=== PATIENT | male | born 1955 | race African-American/Black ===

== ENCOUNTER 2021-06-22 11:13 | Emergency (ER) | payer MEDICAID ==
[~2021-06-22] VITALS: Ht 167.6 cm; Wt 82.0 kg
[~2021-06-22 11:13] MED LIST: ALBU18HF2 IH; LEVO500T89 MT
[2021-06-22 13:04] LABS: BASOPHILS % 0.6 % (0.0-2.0); EOSINOPHILS % 0.2 % (0.0-5.0); HEMATOCRIT. 35.5 % (42.0-52.0); HEMOGLOBIN. 11.9 g/dL (14.0-18.0); LYMPHOCYTES % 10.9 % (20.0-50.0); MEAN CORPUSCULAR HEMOGLOBIN 34.9 pg (28.0-32.0); MEAN CORPUSCULAR VOLUME 103.8 fL (80.0-94.0); MEAN PLATELET VOLUME 8.6 fl (7.4-10.4); MONOCYTES % 6.8 % (2.0-8.0); NEUTROPHILS % 81.5 % (40.0-76.0); PLATELET 351 x1000/uL (130-400); RED BLOOD CELL COUNT 3.42 mill/uL (4.7-6.1)
[2021-06-22 13:11] LABS: CHLORIDE 109 mEq/L (98-107)
[2021-06-22 13:16] LABS: ETHANOL BLOOD < 10 mg/dL
[2021-06-22 13:19] LABS: CREATINE KINASE 141 IU/L (39-308)
[2021-06-22] MEDS ORDERED: CEFTRIAXONE 1 G PREMIX 50 ML IV ONE (18:45)
[2021-06-22] MEDS ORDERED: AZITHROMYCIN 500 MG TABLET PO ONE (18:45)
[2021-06-22] MEDS ORDERED: AZIT250T12 MT (19:36)
[2021-06-22 20:01] LABS: CLARITY URINE CLEAR (CLEAR); COLOR URINE YELLOW (YELLOW); KETONES URINE TRACE (NEGATIVE); LEUKOCYTE ESTERASE URINE NEGATIVE (NEGATIVE); NITRITE URINE NEGATIVE (NEGATIVE); OCCULT BLOOD URINE NEGATIVE (NEGATIVE); PH URINE 6.5 (4.5-8.0); PROTEIN URINE TRACE (NEGATIVE); SPECIFIC GRAVITY URINE 1.015 (1.005-1.030)
[2021-06-22 20:14] LABS: *BARBITURATES SCREEN URINE NEGATIVE (NEGATIVE); *BENZODIAZEPINES SCREEN URINE NEGATIVE (NEGATIVE); METHADONE URINE SCREEN NEGATIVE (NEGATIVE); PHENCYCLIDINE URINE SCREEN NEGATIVE (NEGATIVE)
[2021-06-22 20:15] LABS: *AMPHETAMINES SCREEN URINE NEGATIVE (NEGATIVE); *COCAINE SCREEN URINE NEGATIVE (NEGATIVE); CANNABINOID URINE SCREEN PRESUMTIVE POSITIVE (NEGATIVE); OPIATES URINE SCREEN NEGATIVE (NEGATIVE)
[2021-06-22 20:18] VITALS: BP 142/70
== END 2021-06-22 20:18 | disposition home or self-care (01) ==
LOC: ER 11:30 → ENRESERV 19:49 → CANRESERV 19:49 → ER 20:18 → CANBEDREQ 21:32
DX: R41.0 Disorientation, unspecified (principal); M25.512 Pain in left shoulder; Z79.899 Other long term (current) drug therapy
CPT/HCPCS: 36415; 70450; 71045; 80053; 80305; 80307; 80320; 80329; 81003; 82140; 82550; 82962; 83880; 84443; 84484; 85025; 93005; 96365; 99285; J0696; G0480

== ENCOUNTER 2022-04-17 17:08 | Emergency (ER) | payer MEDICARE, MEDICAID ==
[~2022-04-17] VITALS: Ht 170.2 cm; Wt 75.0 kg
[~2022-04-17 17:08] MED LIST changes: +AZIT250T12 MT; -LEVO500T89 MT; +LEVO500T90 MT
[2022-04-17 17:19] VITALS: BP 123/77
== END 2022-04-17 18:58 | disposition left against medical advice (07) ==
LOC: ER 17:08
DX: Z53.21 Procedure and treatment not carried out due to patient leaving prior to being seen by health care provider (principal); I49.9 Cardiac arrhythmia, unspecified
CPT/HCPCS: 93005

== ENCOUNTER 2022-04-24 11:32 | Emergency (ER) | payer MEDICARE, MEDICAID ==
[~2022-04-24] VITALS: Ht 167.6 cm; Wt 65.5 kg
[2022-04-24] MEDS ORDERED: ONDANSETRON HCL 4MG/2ML INJ IV STA (15:57)
[2022-04-24] MEDS ORDERED: KETOROLAC 30MG/ML VIAL IV STA (15:57)
[2022-04-24] MEDS ORDERED: SODIUM CHLORIDE 0.9% 1,000 ML IV ONE (16:00)
[2022-04-24 16:25] LABS: BASOPHILS % 0.4 % (0.0-2.0); EOSINOPHILS % 0.6 % (0.0-5.0); HEMATOCRIT. 41.7 % (42.0-52.0); LYMPHOCYTES % 17.7 % (20.0-50.0); MEAN CORPUSCULAR HEMOGLOBIN 36.6 pg (28.0-32.0); MEAN CORPUSCULAR VOLUME 109.2 fL (80.0-94.0); MONOCYTES % 6.7 % (2.0-8.0); NEUTROPHILS % 74.6 % (40.0-76.0); PLATELET 372 x1000/uL (130-400); RED BLOOD CELL COUNT 3.82 mill/uL (4.7-6.1); RED CELL DISTRIBUTION WIDTH 14.7 % (11.6-14.6)
[2022-04-24 16:28] VITALS: BP 103/69
[2022-04-24 16:28] LABS: CHLORIDE 103 mEq/L (98-107)
== END 2022-04-24 17:42 | disposition left against medical advice (07) ==
LOC: ER 11:32
DX: M25.512 Pain in left shoulder (principal); R11.10 Vomiting, unspecified; N17.9 Acute kidney failure, unspecified; R94.31 Abnormal electrocardiogram [ECG] [EKG]
CPT/HCPCS: 36415; 71045; 73030; 80053; 83735; 83880; 84484; 85025; 93005; 96361; 96374; 96375; 99285; J1885; J2405; J7030

== ENCOUNTER 2024-12-03 04:57 | Emergency (ER) | payer MEDICARE, MEDICAID ==
[~2024-12-03] VITALS: Ht 175.3 cm; Wt 100.0 kg
[~2024-12-03 04:57] MED LIST changes: +LEVO-65 MT; -LEVO500T90 MT
[2024-12-03 04:59] VITALS: BP 155/75; PULSE 83; RESP 16; TEMP 36.6; O2SAT 96
[2024-12-03 05:44] LABS: BASOPHILS % 0.7 % (0.0-2.0); DIFFERENTIAL COMMENT 0; EOSINOPHILS % 2.6 % (0.0-5.0); HEMATOCRIT. 38.3 % (42.0-52.0); HEMOGLOBIN. 12.8 g/dL (14.0-18.0); LYMPHOCYTES % 26.5 % (20.0-50.0); MEAN CORPUSCULAR HEMOGLOBIN 35.3 pg (28.0-32.0); MEAN CORPUSCULAR HGB CONC 33.5 g/dL (31.0-37.0); MEAN CORPUSCULAR VOLUME 105.3 fL (80.0-94.0); MEAN PLATELET VOLUME 9.2 fl (7.4-10.4); MONOCYTES % 6.9 % (2.0-8.0); NEUTROPHILS % 63.3 % (40.0-76.0); PLATELET 228 x1000/uL (130-400); RED BLOOD CELL COUNT 3.63 mill/uL (4.7-6.1); RED CELL DISTRIBUTION WIDTH 12.9 % (11.6-14.6); WHITE BLOOD COUNT 7.7 x1000/uL (4.5-11.0)
[2024-12-03 05:56] LABS: INR 0.9; PARTIAL THROMBOPLASTIN TIME 26.9 sec (23.4-31.0); PROTHROMBIN TIME 10.1 sec (9.6-11.0)
[2024-12-03 06:35] LABS: CHLORIDE 112 mEq/L (98-107); POTASSIUM 3.5 mEq/L (3.5-5.1); SODIUM 142 mEq/L (136-145)
[2024-12-03 06:36] LABS: CARBON DIOXIDE 21 mEq/L (21-32)
[2024-12-03 06:37] LABS: CALCIUM 9.4 mg/dL (8.7-10.4)
[2024-12-03 06:42] LABS: GLUCOSE 180 mg/dL (70-105); TROPONIN I HIGH SENSITIVITY 4 ng/L (3.0-53); UREA NITROGEN BLOOD 20 mg/dL (9-23)
[2024-12-03] MEDS: HYDROCODONE/ACETAMINOPHEN 5/325MG TABLET PO NR (06:59)
[2024-12-03] MEDS: ASPIRIN 81MG TABLET PO NR (07:00)
[2024-12-03 07:02] LABS: ETHANOL BLOOD < 10 mg/dL (<10)
[2024-12-03] MEDS: NITROGLYCERIN 0.4MG TABLET SL SL PRN (07:20)
[2024-12-03 08:02] LABS: INFLUENZA TYPE A Presumptive Negative (Pres. Neg.); INFLUENZA TYPE B Presumptive Negative (Pres. Neg.)
[2024-12-03 09:53] LABS: *AMPHETAMINES SCREEN URINE NEGATIVE (NEGATIVE); *BARBITURATES SCREEN URINE NEGATIVE (NEGATIVE); *BENZODIAZEPINES SCREEN URINE NEGATIVE (NEGATIVE); *COCAINE SCREEN URINE NEGATIVE (NEGATIVE); CANNABINOID URINE SCREEN NEGATIVE (NEGATIVE); ECSTASY MDMA SCREEN URINE NEGATIVE (NEGATIVE); METHADONE URINE SCREEN NEGATIVE (NEGATIVE); OPIATES URINE SCREEN NEGATIVE (NEGATIVE); PHENCYCLIDINE URINE SCREEN NEGATIVE (NEGATIVE)
== END 2024-12-03 12:05 | disposition left against medical advice (07) ==
LOC: ER 04:57 → CANBEDREQ 12:06
DX: R07.89 Other chest pain (principal); Z20.822 Contact with and (suspected) exposure to COVID-19
CPT/HCPCS: 36415; 71045; 80048; 80305; 80320; 83880; 84484; 85025; 87426; 87804; 93005; 99285; G0480